=== PATIENT | female | born 1970 | race Asian ===

== ENCOUNTER 2016-12-31 11:02 | Emergency (ER) | payer OTHER ==
[~2016-12-31] VITALS: Ht 162.6 cm; Wt 95.3 kg
[2016-12-31 11:21] VITALS: BP 118/78; TEMP 99.1
== END 2016-12-31 11:41 | disposition home or self-care (01) ==
LOC: ED 11:02
DX: R10.2 Pelvic and perineal pain (principal)

== ENCOUNTER 2017-04-22 13:48 | Emergency (ER) | payer OTHER ==
[~2017-04-22] VITALS: Ht 160 cm; Wt 99.8 kg
[2017-04-22 14:26] LABS: PLATELET COUNT 257 K/uL (152-353)
[2017-04-22 14:29] LABS: POTASSIUM 3.1 mmol/L (3.6-5.2)
[2017-04-22 22:08] VITALS: BP 107/68; TEMP 98.6
== END 2017-04-22 22:08 | disposition home or self-care (01) ==
LOC: ED 13:48
DX: N73.9 Female pelvic inflammatory disease, unspecified (principal)
CPT/HCPCS: 80053; 83605; 85027; 96361; 96365; 96375; 99284; J0696; J1885; J2405; J2550

== ENCOUNTER 2017-04-26 14:41 | Observation (INO) | payer OTHER ==
[~2017-04-26] VITALS: Ht 167.6 cm; Wt 97.5 kg
[2017-04-26 14:30] VITALS: BP 128/72; TEMP 99.2
[2017-04-26 15:00] VITALS: BP 119/70
[2017-04-26 15:42] LABS: POTASSIUM 3.5 mmol/L (3.6-5.2)
[2017-04-26 15:51] LABS: PLATELET COUNT 325 K/uL (152-353)
[2017-04-26 15:57] LABS: PARTIAL THROMBOPLASTIN TIME 24.4 SECONDS (24.5-33.6)
[2017-04-26 16:57] VITALS: BP 130/68
--- NOTE | 2017-04-26 23:00 | NUR ---
46 YEAR OLD BLACK FEMALE RECEIVED FROM ER. PT AWAKE AND ALERT. STATES SHE IS HUNGRY. PT HAS BEEN IN ER SINCE 1200, STATES SHE HAS NOT EATEN. ASSESSMENT COMPLETED. FOOD GIVEN.
[2017-04-26 23:04] VITALS: BP 134/96; TEMP 98.5; Ht 167.6 cm; Wt 97.5 kg
[2017-04-27] VITALS (7 sets, daily range): BP systolic 107–142; BP diastolic 63–96; TEMP 98.1–99.4
--- NOTE | 2017-04-27 03:00 | NUR ---
TROPONIN DRAWN. TO LAB
--- NOTE | 2017-04-27 05:56 | NUR ---
PT STATES SHE NEEDS SOMETHING FOR PAIN. PAIN MEDICATION NOT DUE.
[2017-04-28 04:00] VITALS: BP 117/72; TEMP 98.9
[2017-04-28 05:17] LABS: PLATELET COUNT 368 K/uL (152-353)
[2017-04-28 05:33] LABS: POTASSIUM 3.3 mmol/L (3.6-5.2)
[2017-04-28 08:00] VITALS: BP 119/75; TEMP 98.7
[2017-04-28 12:00] VITALS: BP 117/18; TEMP 98.1
--- NOTE | 2017-04-28 12:15 | NUR ---
CALLED TO PT'S ROOM. PT STATES IV LEAKING R HAND. IV DRESSING TAKEN DOWN. IV REINSERTED INTO VEIN. LEAKING OBSERVED AROUND CANNULA WITH NS FLUSH. IV R HAND 22G D/C'D AT THIS TIME.
--- NOTE | 2017-04-28 14:20 | NUR ---
D/C INSTRUCTIONS GIVEN TO PT WITH RX ATTACHED. IV D/C'D R AC 20G CATH TIP INTACT.
== END 2017-04-28 15:06 | disposition home or self-care (01) ==
LOC: ED 14:41 → MED/SURG 22:04
PROVIDERS: Internal Medicine; ADMIT Specialist
DX: R07.89 Other chest pain (principal); A04.8 Other specified bacterial intestinal infections; K21.9 Gastro-esophageal reflux disease without esophagitis; B00.89 Other herpesviral infection
CPT/HCPCS: 36415; 80053; 81000; 81025; 82550; 83735; 83880; 84484; 85027; 85379; 85610; 85730; 86318; 87088; 87338; 87490; 87590; 93005; 96367; 96374; 96375; 99220; 99284; G0378; J0696; J2550; J3490; Q9963

== ENCOUNTER 2020-09-05 17:33 | Emergency (ER) | payer OTHER ==
[~2020-09-05] VITALS: Ht 167.6 cm; Wt 104.3 kg
[2020-09-05 17:53] LABS: PLATELET COUNT 231 K/uL (152-353)
[2020-09-05 18:05] LABS: POTASSIUM 3.4 mmol/L (3.6-5.2)
[2020-09-05 20:47] VITALS: BP 139/82; TEMP 98.4
== END 2020-09-05 20:47 | disposition home health service (06) ==
LOC: ED 17:33
PROVIDERS: Hospitalist
DX: R10.84 Generalized abdominal pain (principal); N92.5 Other specified irregular menstruation
CPT/HCPCS: 80053; 81000; 81025; 82150; 83690; 85027; 85610; 85730; 96360; 96375; 99284; J1885; J2270; J2405

== ENCOUNTER 2022-03-17 14:30 | Emergency (ER) | payer OTHER ==
[~2022-03-17] VITALS: Ht 167.6 cm; Wt 95.3 kg
[2022-03-17 14:35] VITALS: BP 134/80; TEMP 98.6
[2022-03-17 15:50] LABS: PLATELET COUNT 165 K/uL (152-353)
[2022-03-17 16:00] LABS: POTASSIUM 3.6 mmol/L (3.6-5.2)
[2022-03-17] MEDS ORDERED: ONDA4TAB3 PO (16:34)
== END 2022-03-17 16:54 | disposition home or self-care (01) ==
LOC: ED 14:30
PROVIDERS: Emergency Medicine
DX: K52.89 Other specified noninfective gastroenteritis and colitis (principal)
CPT/HCPCS: 36415; 80053; 81000; 84484; 85027; 93005; 96360; 96374; 99284; J2405

== ENCOUNTER 2023-02-07 13:04 | Emergency (ER) | payer OTHER ==
[~2023-02-07] VITALS: Ht 167.6 cm; Wt 87.2 kg
[~2023-02-07 13:04] MED LIST: ONDA4TAB3 PO
[2023-02-07 13:10] VITALS: TEMP 98.1
[2023-02-07 14:32] LABS: PLATELET COUNT 206 K/uL (152-353)
[2023-02-07 14:40] LABS: POTASSIUM 3.8 mmol/L (3.6-5.2)
[2023-02-07 14:58] LABS: PARTIAL THROMBOPLASTIN TIME 24.3 SECONDS (24.5-33.6)
[2023-02-07 16:30] VITALS: BP 160/98
== END 2023-02-07 16:30 | disposition home or self-care (01) ==
LOC: ED 13:04
PROVIDERS: Family Medicine
DX: I16.0 Hypertensive urgency (principal); R51.9 Headache, unspecified; F15.10 Other stimulant abuse, uncomplicated
CPT/HCPCS: 36415; 80053; 80307; 81002; 82550; 84484; 85027; 85610; 85730; 93005; 99284; J3490